=== PATIENT | female | born 1960 | race Two or more races ===

== ENCOUNTER 2021-03-09 21:02 | Emergency (ER) | payer OTHER ==
[~2021-03-09] VITALS: Ht 165.1 cm; Wt 59.0 kg
[2021-03-09] MEDS ORDERED: GLIPIZIDE XL10 MG (21:21)
[2021-03-09] MEDS ORDERED: GLUMETZA500 MG (21:21)
[2021-03-09] MEDS ORDERED: CITALOPRAM20 MG/10 M (21:21)
[2021-03-09] MEDS ORDERED: ACTOS45 MG (21:21)
[2021-03-09] MEDS ORDERED: CALCIUM 500 +1 EAC2 (21:22)
[2021-03-09] MEDS ORDERED: ATORVASTATIN CA40 MG (21:22)
[2021-03-09] MEDS ORDERED: JANUVIA100 MG (21:22)
[2021-03-09] MEDS ORDERED: CHILDREN'S ASPI81 MG (21:22)
[2021-03-09] MEDS ORDERED: LAC-HYDRIN FIV226 GM (21:23)
[2021-03-09] MEDS ORDERED: XOLEGEL45 GM (21:23)
[2021-03-09] MEDS ORDERED: INTERMEZZO3.5 MG (21:23)
[2021-03-09] MEDS ORDERED: IBU800 MG PO (23:10)
== END 2021-03-09 23:36 | disposition home or self-care (01) ==
LOC: ER 21:02
DX: S92.321A Displaced fracture of second metatarsal bone, right foot, initial encounter for closed fracture (principal); S92.331A Displaced fracture of third metatarsal bone, right foot, initial encounter for closed fracture; W22.8XXA Striking against or struck by other objects, initial encounter; S90.31XA Contusion of right foot, initial encounter; Y93.89 Activity, other specified; Y92.89 Other specified places as the place of occurrence of the external cause; Y99.8 Other external cause status